=== PATIENT | female | born 1955 | race Caucasian/White ===

== ENCOUNTER → 2020-03-19 | Outpatient (CLI) | payer OTHER ==
--- NOTE | 2020-03-19 16:24 | RAD ---
EXAM DESCRIPTION: Wrist,Left 3 Views CLINICAL HISTORY: 64 years, Female, PAIN IN LEFT WRIST COMPARISON: None FINDINGS: Left wrist 3 x-ray views is positive for fracture of the distal radius with impaction and dorsal angulation (Colles' fracture). Fracture line likely extends into the radiocarpal joint. Mild splaying of fragments seen on lateral view. Articular surface is dorsally angulated approximately 20 degrees. Articular surface of the radius is still aligned with the lunate. In the carpus, degenerative changes are present laterally. Lucency in the ulnar styloid could be nondisplaced fracture here as well or this could be an erosion. Metacarpals appear intact.. IMPRESSION: Impacted fracture of the distal left radius. Question additional fracture of the ulnar styloid. Electronically signed by: Jamel Torres MD 03/19/2020 4:23 PM CDT
== END ==
LOC: RAD 10:10
PROVIDERS: ATTEND Orthopaedic Surgery
DX: S52.502A Unspecified fracture of the lower end of left radius, initial encounter for closed fracture (principal)